=== PATIENT | female | born 1975 | race African-American/Black ===

== ENCOUNTER 2020-03-21 07:13 | Day surgery (SDC) | payer MEDICAID ==
[2020-03-21] MEDS ORDERED: DEXAMETHASONE SOD PHOS INJ 10 MG/1 ML VIAL ONE (07:17)
[2020-03-21] MEDS ORDERED: LIDOCAINE 2% INJ-PF (20 MG/ML) 10 ML AMPUL ONE (07:17)
[2020-03-21] MEDS ORDERED: MIDAZOLAM 2 MG/2 ML INJ ONE (07:17)
[2020-03-21] MEDS ORDERED: ONDANSETRON HCL INJ/PF 4 MG/2 ML SDV ONE (07:17)
[2020-03-21] MEDS ORDERED: FENTANYL CITRATE INJ/PF 250 MCG/5 ML AMPULE ONE (07:17)
[2020-03-21] MEDS ORDERED: PROPOFOL INJ 200 MG/20 ML VIAL IV ONE (07:18)
[2020-03-21] MEDS ORDERED: SUCCINYLCHOLINE CHLORIDE INJ 200 MG/10 ML VIAL ONE (07:18)
[2020-03-21] MEDS ORDERED: BUPIVACAINE HCL 0.5%/EPI 1:200000 INJ 1.8 ML CARTRIDGE ONE (08:14)
--- NOTE | 2020-03-21 12:33 | Operative Report ---
Operative Report-[facility] Operative Report: DATE OF OPERATION: March 21, 2020 PREOPERATIVE DIAGNOSIS: 1. Acute recurrent tonsillitis 2. Chronic tonsillitis 3. Chronic recurrent tonsil stones POSTOPERATIVE DIAGNOSIS: 1. Acute recurrent tonsillitis 2. Chronic tonsillitis 3. Chronic recurrent tonsil stones PROCEDURE: 1. Bilateral tonsillectomy patient age greater than 12 years of age Primary Surgeon of Record: Dr. Shadi Reed WATER SANDER: None Anesthesia Staff: JULIA Carlin ANESTHESIA: General Endotracheal Tube Anesthesia DRAINS: None SPONGE COUNT: Verified Needle Count: N/A SPECIMEN/MATERIALS FORWARD TO THE LAB: 1. Left and Right Tonsillar Tissue ESTIMATED BLOOD LOSS: 5 mL IV FLUIDS: 600 mL COMPLICATIONS: None Findings: 1. The tonsils were greater than 2+ in size, were highly cryptic in appearance, and were with increased tonsillar debris present bilateral. 2. The soft palatal tissues were redundant in nature and the uvula was unremarkable in appearance. INDICATIONS: This is a 44-year-old Afro-[place] female patient who was seen and evaluated in the [facility]. The patient had been referred for and she complained of a history of acute recurrent tonsillitis episodes requiring antibiotics over the years. The patient is also with history of chronic tonsillitis with chronic recurrent tonsil stones and condition of keratosis pharyngeus over the years. After extensive discussion with the patient the recommendation and plan was to proceed with a bilateral tonsillectomy. The procedures and all of the risks and complications were all discussed in detail with the patient. She voiced an understanding of the described surgical plan, were in agreement, and consent was obtained. DESCRIPTION OF OPERATIVE PROCEDURE: The patient was taken to the main operating room and was placed on the operating room table in the supine position. Appropriate monitors were placed. Using mask and IV access general anesthesia was induced. The patient was next transorally intubated without difficulty. The table was then rotated 90 and the patient was positioned and prepped for tonsil surgery. The lips, teeth, tongue, and gums were inspected and noted to be without defect. The patient had a mouth gag inserted. It was opened and the patient was placed into suspension. There was a soft catheter passed through the nose that was used to suspend the soft palate. Findings are as noted above. At this point Marcaine with epinephrine was administered into the peritonsillar tissues and soft palate region. The plasma J-hook device was used to dissect and remove the tonsils from the tonsillar fossae without difficulty. This was also used to provide adequate hemostasis. Normal saline irrigation was performed and was suctioned. Adequate hemostasis was noted. The soft catheter was released and removed from the patients nose. The patient was next released from suspension and the mouth gag was closed. It was opened again and there was again no bleeding noted. It was then removed from the patient's mouth without difficulty. There was no damage to the lips, teeth, tongue, or gums noted. The patient was then returned to the anesthesia staff and was allowed to emerge from general anesthesia. The patient was extubated in the operating room and was transported to the post anesthesia recovery unit in stable condition. There were no complications.
== END 2020-03-21 10:21 ==
LOC: SC 07:13 → EDSEX 13:15
PROVIDERS: ATTEND Otolaryngology
DX: J35.1 Hypertrophy of tonsils (principal); J35.8 Other chronic diseases of tonsils and adenoids; R19.6 Halitosis; Z03.818 Encounter for observation for suspected exposure to other biological agents ruled out; J45.909 Unspecified asthma, uncomplicated; I10 Essential (primary) hypertension; Z86.73 Personal history of transient ischemic attack (TIA), and cerebral infarction without residual deficits; Z79.51 Long term (current) use of inhaled steroids; K21.9 Gastro-esophageal reflux disease without esophagitis; R06.83 Snoring; R53.83 Other fatigue; G47.10 Hypersomnia, unspecified; R35.1 Nocturia
CPT/HCPCS: 42826; 36415; 87635; 86003 ×24; 82785; 88304 ×2; J2250; J3490 ×2; J3010; J0330; J2405; J2704; J1100; C9803; 170